=== PATIENT | male | born 1970 | race Caucasian/White ===

== ENCOUNTER 2018-12-12 13:12 | Emergency (ER) | payer OTHER ==
[2018-12-12] MEDS ORDERED: Ketorolac 30 MG/ML SDV IM ONE (16:26)
[2018-12-12] MEDS ORDERED: Orphenadrine 100 MG Tab.ER PO ONE (16:26)
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
== END 2018-12-12 17:30 | disposition home or self-care (01) ==
LOC: JD.ED 13:12
DX: S13.4XXA Sprain of ligaments of cervical spine, initial encounter (principal); Z90.49 Acquired absence of other specified parts of digestive tract; Z88.8 Allergy status to other drugs, medicaments and biological substances; Z79.899 Other long term (current) drug therapy; V53.5XXA Driver of pick-up truck or van injured in collision with car, pick-up truck or van in traffic accident, initial encounter
CPT/HCPCS: 96372; 99283; A9270; J1885

== ENCOUNTER 2024-04-15 06:45 | Day surgery (SDC) | payer BC ==
[~2024-04-15 06:45] MED LIST: Sodium Chloride 0.9% 10 ML Syringe FLUSH PRN; Sodium Chloride 0.9% 10 ML Syringe FLUSH SCH
[2024-04-15] MEDS: Acetaminophen 325 MG Tab PO SCH (07:13)
[2024-04-15] MEDS: Pregabalin 25 MG Cap PO SCH (07:13)
[2024-04-15] MEDS: oxyCODONE ER 10 MG TAB.ER PO SCH (07:13)
[2024-04-15] MEDS: Lactated Ringers 1,000 ML IV SCH (07:14)
[2024-04-15] MEDS ORDERED: Midazolam 1 MG/ML 2 ML SDV ONE (07:23)
[2024-04-15] MEDS ORDERED: Propofol 200 MG/20 ML SDV ONE ×3 (07:23→09:03)
[2024-04-15] MEDS ORDERED: dexmedeTOMIDine HCl 200 MCG/2 ML SDV ONE (07:26)
[2024-04-15] MEDS ORDERED: Ondansetron 4 MG/2 ML SDV ONE (07:26)
[2024-04-15] MEDS ORDERED: Ropivacaine 0.5% 5 MG/ML 30 ML SDV ONE (07:27)
[2024-04-15] MEDS ORDERED: ceFAZolin 2 GM Vial ONE (08:08)
[2024-04-15] MEDS ORDERED: ePHEDrine 50 MG/ML SDV ONE (08:11)
[2024-04-15] MEDS ORDERED: Phenylephrine 1% 10 MG/ML SDV ONE (08:12)
[2024-04-15] MEDS ORDERED: Ketamine 200 MG/20 ML MDV ONE (08:18)
[2024-04-15] MEDS ORDERED: Lactated Ringers 1,000 ML ONE (08:33)
[2024-04-15] MEDS ORDERED: Dexamethasone 4 MG/ML 5 ML MDV ONE (08:57)
[2024-04-15] MEDS ORDERED: HYDROmorphone 0.5 MG/0.5 ML Syringe IVPUSH PRN (09:03)
[2024-04-15] MEDS ORDERED: fentaNYL 100 MCG/2 ML SDV IVPUSH PRN (09:03)
[2024-04-15] MEDS ORDERED: Ondansetron 4 MG/2 ML SDV IVPUSH PRN (09:03)
[2024-04-15] MEDS: Morphine 8 MG, EPINEPHrine 0.3 MG, Cefuroxime 750 MG, Ketorolac 30 MG, Sodium Chloride ... PRN (09:10)
[2024-04-15] MEDS: VANCOmycin 1 GM SDV ONE (09:16)
[2024-04-15] MEDS: Tranexamic Acid 1,000 MG/10 ML Vial ONE (09:16)
[2024-04-15] MEDS: oxyCODONE 5 MG Tab PO PRN (10:32)
== END 2024-04-15 14:15 | disposition home or self-care (01) ==
LOC: JD.SDS 06:45
PROVIDERS: ATTEND Orthopaedic Surgery
DX: M17.11 Unilateral primary osteoarthritis, right knee (principal)
CPT/HCPCS: 0055T; 27447; 64447; 73560; 97110; 97116; 97161; A9270; C1713; C1776; J0171; J0690; J0697; J1100; J1885; J2250; J2272; J2371; J2405; J2704; J2795; J3490; J7120; 01400

== ENCOUNTER → 2024-12-02 | Day surgery (SDC) | payer BC ==
[~2024-12-02] MED LIST changes: +Glycopyrrolate 0.2 MG/ML 2 ML SDV ONE; +Ketamine HCL/NACL, ISO-OSM 50 MG/5 ML Syringe ONE; +Ketorolac 30 MG/ML SDV IVPUSH PRN; +Lactated Ringers 1,000 ML IV SCH; +Midazolam 1 MG/ML 2 ML SDV ONE; +Ondansetron 4 MG/2 ML SDV IVPUSH PRN; +Ondansetron 4 MG/2 ML SDV ONE; +Phenylephrine 1% 10 MG/ML SDV ONE; +Ropivacaine 0.5% 5 MG/ML 30 ML SDV ONE; +dexmedeTOMIDine HCl 200 MCG/2 ML SDV ONE; +fentaNYL 100 MCG/2 ML SDV IVPUSH PRN; +propofoL 500 MG/50 ML 50 ML ONE
[2024-12-02] MEDS: Lactated Ringers 1,000 ML IV SCH (06:15)
[2024-12-02] MEDS: oxyCODONE ER 10 MG TAB.ER PO ONE (06:33)
[2024-12-02] MEDS: Morphine 8 MG, EPINEPHrine 0.3 MG, Cefuroxime 750 MG, Ketorolac 30 MG, Sodium Chloride ... PRN (08:15)
== END | disposition home or self-care (01) ==
LOC: JD.SDS 06:00
PROVIDERS: ATTEND Orthopaedic Surgery
DX: M17.12 Unilateral primary osteoarthritis, left knee (principal); I10 Essential (primary) hypertension; Z88.8 Allergy status to other drugs, medicaments and biological substances; Z87.891 Personal history of nicotine dependence; Z79.899 Other long term (current) drug therapy
CPT/HCPCS: 0055T; 27447; 64447; 73560; 97116; 97161; 97530; A9270; C1713; C1776; J0169; J0690; J0697; J1596; J1885; J2250; J2272; J2371; J2405; J2704; J2795; J3373; J7120; 01402; J3490